=== PATIENT | female | born 2000 | race Caucasian/White ===

== ENCOUNTER 2024-11-09 13:56 | Outpatient (AMB) | payer OTHER, SELFPAY ==
--- NOTE | 2024-11-09 14:00 | A.OFFPC_ITS ---
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 She needs a physical exam today. Patient was diagnosed with ADHD at her Pediatrics office. She transferred from [place]. She has records on her phone, but she will sign a release so they can be faxed to us. Per mass pat she was treated with methylphenidate extended release 36 mg daily. She denies side effects on the medication. She has a longstanding history of anxiety and she says mild depression. Anxiety is significant. She uses hydroxyzine 25 mg at bedtime for sleep and anxiety. She is interested in seeing a therapist. She smokes marijuana. She only drinks alcohol occasionally. Agreeable to [facility] and contract for medication. 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 She is living with a roommate. Her monotype mechanic is Dr. Bray at [facility]. She goes every 6 months because she needs to have colposcopies. We discussed her family history which is significant for breast and ovarian cancer. Patient also states that her father had genetic testing that was positive she thinks for BRCA mutation. The patient would like to proceed with testing. Flu and Tdap up to date per patient. Records transfer pending. ROS: Constitutional: No unexplained weight loss, fever, chills, fatigue or night sweats. Eyes: No vision changes, blurry vision, double vision, eye pain, eye redness, eye discharge. ENT: No hearing loss, sneezing, congestion, runny nose or sore throat. Respiratory: No shortness of breath, cough or sputum production. Cardiovascular: No chest pain, chest pressure or chest discomfort. No palpitations or pedal edema. Gastrointestinal: No anorexia, nausea, vomiting or diarrhea. No abdominal pain or blood in stool. Genitourinary: No dysuria, hematuria, urinary frequency. Neurologic: No headache, dizziness, syncope, unilateral weakness, ataxia, numbness or tingling in the extremities. Musculoskeletal: No muscle pain, back pain, joint pain or swelling. Hematologic/Lymphatics: No bleeding or bruising. No painful lymph nodes. Skin: No rash or itching. Endocrine: No cold or heat intolerance. No polyuria or polydipsia. Psychiatric: See HPI and PHQ-9 assessment. No SI or HI Physical exam: Constitutional: Alert, in no distress. Head: Normocephalic. Eyes: Pupils are equal, round and reactive to light. Extraocular muscles intact. Ear, Nose and Throat: Canals clear. TMs normal. Normal nasal mucosa. No nasal discharge. No oral lesions. Neck: Supple, Full range of motion. No lymphadenopathy. No palpable thyroid masses. Respiratory: Clear to auscultation. Cardiovascular: S1 S2 regular. No murmurs. Gastrointestinal: Abdomen soft, non-tender, non-distended. Normal bowel sounds. No palpable masses. Neurologic: No focal neurological deficits. Symmetric patellar reflexes. Moves all extremities spontaneously. Sensation intact bilaterally. Skin: No rashes or lesions. Musculoskeletal: No gross deformities. Normal range of motion. Extremities: Warm and well perfused. No clubbing, cyanosis or edema. 3+ peripheral pulses bilaterally. Psychiatric: Normal mood and affect [facility] Medical History (Updated 11/09/24 @ 14:59 by ASHLY Carranza) Family history of breast abscess Family history of ovarian cancer Anxiety and depression ADHD Routine physical examination Screening for cardiovascular condition Family History Father Rectal cancer Paternal Grandmother Ovarian cancer Cervical cancer Paternal Aunt Breast cancer Paternal Aunt Breast cancer Other FH: mental illness Social History (Updated 11/09/24 @ 14:04 by Briseida Sutherland CMA) Housing: House Alcohol intake: current Patient Tobacco Use Status: Never used Tobacco e-Cigarette/Vaping Use: Never Used Second Hand Smoke Exposure: No Substance Use Type: Marijuana service: No Current occupational status: employed 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 1. Little interest or pleasure in doing things: several days 2. Feeling down, depressed, or hopeless: several days 3. Trouble falling or staying asleep, or sleeping too much: nearly every day 4. Feeling tired or having little energy: more than half the days 5. Poor appetite or overeating: more than half the days 6. Feeling bad about yourself - or that you are a failure or have let yourself or your family down: several days 7. Trouble concentrating on things, such as reading the newspaper or watching television: nearly every day 8. Moving or speaking so slowly that other people could have noticed. Or the opposite - being so fidgety or restless that you have been moving around a lot more than usual: nearly every day 9. Thoughts that you would be better off or of hurting yourself in some way: not at all Total score: 16 Source: Developed by Drs. Stewart Sauceda, Tere Oden, Boubacar Nielson and colleagues, with an educational yordan from [employer]. Thrive Questionnaire Date Thrive assessed: 11/06/24 I am a: Patient What is your living situation today?: I have a steady place to live Within the past 12 months, did the food you bought not last and you didn't have the money to get more?: Never true Within the past 12 months, did you worry whether your food would run out before you got money to buy more?: Never true Do you have trouble paying for medicines?: No Do you have trouble getting transportation to medical appointments?: No Do you have trouble paying your heating and electricity bill?: No Do you have trouble taking care of your child, family member or friend?: No Do you have trouble with day-to-day activities such as bathing, preparing meals, shopping, managing finances, etc.?: No Are you currently unemployed and looking for a job?: No Are you interested in more education?: No Please select the resources that you would like help with: None Currently or been in a relationship where the following occur: No concerns reported THRIVE Score: 0 AUDIT C Alcohol Use Questionnaire (AUDIT-C) 1. How often do you have a drink containing alcohol?: Monthly or less 2. How many drinks containing alcohol do you have on a typical day when you are drinking?: 1 or 2 3. How often do you have six or more drinks on one occasion?: Never Total Score: 1 MANNIE-7 AMB Questionnaire MANNIE-7 Feeling nervous, anxious, or on edge: 3 = Nearly every day Not being able to stop or control worryin = Nearly every day Worrying too much about different things: 3 = Nearly every day Trouble relaxin = Nearly every day Being so restless that it is hard to sit still: 3 = Nearly every day Becoming easily annoyed or irritable: 2 = More than half the days Feeling afraid as if something awful might happen: 1 = Several days Total MANNIE-7 score (0-4 normal; 5-9 mild; 10-14 moderate; 15-21 severe): 18 Source: Developed by Drs. Stewart Sauceda, Tere Oden, Boubacar Nielson and colleagues, with an educational yordan from [employer]. Physical exam (Primary Care) Vital Signs: Last Vital Signs Pulse 94 11/09/24 14:13 BP 124/68 11/09/24 14:13 Oxygen Delivery Method Room Air 11/09/24 14:13 BMI result Body Mass Index 28.6 Tobacco/Smoking Status: Tobacco use Status Tobacco use date assessed 11/09/24 11/09/24 14:10 Patient Tobacco Use Status Never used Tobacco 11/09/24 14:10 e-Cigarette/Vaping Use Never Used 11/09/24 14:10 PHQ-9: PHQ-9 Score PHQ-9: Total score 16 11/09/24 14:10 Thrive Assessment: Date of Thrive Assessment Date Thrive assessed 11/06/24 11/09/24 14:10 Currently or been in a relationship where the following occur: No concerns reported Coding Level of Care Code New Pt Prev Care 18-39yr([id number] Diagnoses Routine physical examination Z00.00 Screening for cardiovascular condition Z13.6 Family history of ovarian cancer Z80.41 Anxiety and depression F41.9; F32.A ADHD F90.9 Assessment & Plan Assessment & Plan (1) Routine physical examination: Code(s): Z00.00 - Encounter for general adult medical examination without abnormal findings Category: Medical Plan: Patient is seen today for a routine physical. As part of this visit we reviewed the following issues, which are considered and essential part of preventative health in this age group: - Breast Cancer screening - Annual Environmental Maintenance Worker exam - Blood pressure screening - Cholesterol screening - Osteoporosis prevention including calcium/vitamin D intake, weight bearing exercise & smoking cessation - Nutritional and exercise counseling - Counseling of injury prevention including fire prevention, smoke alarms and seat belt usage - Screening for depression - Prevention of and/or testing for infectious diseases - Education about skin cancer - Recommendations about immunizations - Recommendation of an eye exam - Screening for substance abuse - Genetic cancer risk screening (2) Screening for cardiovascular condition: Code(s): Z13.6 - Encounter for screening for cardiovascular disorders Category: Medical (3) Family history of ovarian cancer: Code(s): Z80.41 - Family history of malignant neoplasm of ovary Category: Medical Plan: Refer to genetic counseling to discuss testing. (4) Anxiety and depression: Code(s): F41.9 - Anxiety disorder, unspecified; F32.A - Depression, unspecified Category: Medical Plan: Continue hydroxyzine 25 mg nightly. Referred to Psychology for counseling. (5) ADHD: Code(s): F90.9 - Attention-deficit hyperactivity disorder, unspecified type Category: Medical Plan: Mass pat reviewed. CSC sign. She will have UDS done when she completes labs. Refilled medication. Plan Follow up in 6 months for med review. Orders: Orders Comprehensive Met. Panel Today F90.9 - Attention-deficit hyperactivity disorder, unspecified type, Z00.00 - Encounter for general adult medical examination without abnormal findings, Z13.6 - Encounter for screening for cardiovascular disorders Lipid Panel Today E78.5 - Hyperlipidemia, unspecified, F90.9 - Attention- deficit hyperactivity disorder, unspecified type, Z00.00 - Encounter for general adult medical examination without abnormal findings, Z13.6 - Encounter for screening for cardiovascular disorders Drug Screen Urine Today F90.9 - Attention-deficit hyperactivity disorder, unspecified type, Z00.00 - Encounter for general adult medical examination without abnormal findings, Z13.6 - Encounter for screening for cardiovascular disorders Complete Blood Count no Diff Today F90.9 - Attention-deficit hyperactivity disorder, unspecified type, Z00.00 - Encounter for general adult medical examination without abnormal findings, Z13.6 - Encounter for screening for cardiovascular disorders TSH reflex Free T4 Today F90.9 - Attention-deficit hyperactivity disorder, unspecified type, Z00.00 - Encounter for general adult medical examination without abnormal findings, Z13.6 - Encounter for screening for cardiovascular disorders Referrals Psychology Referral F32.A - Depression, unspecified, F41.9 - Anxiety disorder, unspecified, F90.9 - Attention-deficit hyperactivity disorder, unspecified type Genetics Referral Z80.41 - Family history of malignant neoplasm of ovary, Z84.2 - Family history of other diseases of the genitourinary system Medications: New methylphenidate HCl ER 36 mg PO DAILY 30 tabs 0RF hydroxyzine HCl 25 mg PO BEDTIME 90 tabs 3RF
[2024-11-09 14:13] VITALS: BP 124/68; PULSE 94; BMI 28.6
== END 2024-11-09 14:55 | disposition home or self-care (01) ==
PROVIDERS: PCP Physician Assistant Medical; Visit Provider Physician Assistant Medical
DX: Z00.00 Encounter for general adult medical examination without abnormal findings (principal); Z13.6 Encounter for screening for cardiovascular disorders; Z80.41 Family history of malignant neoplasm of ovary; F41.9 Anxiety disorder, unspecified; F32.A Depression, unspecified; F90.9 Attention-deficit hyperactivity disorder, unspecified type

== ENCOUNTER 2025-05-08 09:02 | Outpatient (REF) | payer OTHER, SELFPAY ==
[2025-05-08 11:33] LABS: Hematocrit 38.5 % (37.0-47.0); Hemoglobin 12.7 g/dl (12.0-16.0); Mean Corpuscular Hemoglobin 29.1 pg (27.0-33.0); Mean Corpuscular Volume 88.3 fL (80.0-98.0); Mean Platelet Volume 9.3 fL (9.4-12.3); Platelet Count 209 X10*3/uL (160-400); Red Blood Count 4.36 X10*6/uL (4.20-5.50); Red Cell Distribution Width 12.9 % (11.0-16.0); White Blood Count 3.7 X10*3/uL (4.8-10.8)
[2025-05-08 12:07] LABS: Alanine Aminotransferase 13 U/L (0-31); Alkaline Phosphatase 57 U/L (39-117); Anion Gap 9 (12-20); Aspartate Amino Transferase 22 U/L (5-31); Bilirubin Total 0.6 mg/dL (0.0-1.0); Blood Urea Nitrogen 9 mg/dL (9-16); Calcium 8.8 mg/dL (8.4-10.2); Carbon Dioxide 24 mmol/L (22-29); Chloride 110 mmol/L (96-108); Cholesterol 163 mg/dL (<200); Estimated Glomerular Filt Rate > 60; Glucose Random 88 mg/dL (60-115); HDL Cholesterol 71 mg/dL (>40); LDL Cholesterol Calculated 81 mg/dL (<100); Potassium 4.1 mmol/L (3.3-5.1); Sodium 139 mmol/L (135-145); Total Protein 6.4 g/dL (6.5-8.0); Triglycerides 56 mg/dL (<150)
[2025-05-08 12:08] LABS: TSH reflex Free T4 0.75 uIU/mL (0.32-4.0)
[2025-05-08 14:27] LABS: Amphetamine Screen Urine Not Detected (Not Detect); Barbiturates, Urine Not Detected (Not Detect); Benzodiazepines Screen Urine Not Detected (Not Detect); Buprenorphine Scr Not Detected (Not Detect); Cannabinoid Screen Urine POSITIVE (Not Detect); Cocaine Screen Urine Not Detected (Not Detect); Fentanyl, urine Not Detected (Not Detect); Methadone Screen, Urine Not Detected (Not Detect); Opiate Screen Urine Not Detected (Not Detect); Oxycodone Screen Urine Not Detected (Not Detect); Phencyclidine Screen Urine Not Detected (Not Detect)
== END 2025-05-08 09:03 | disposition home or self-care (01) ==
LOC: HO.WFDLDS 09:02
PROVIDERS: Visit Provider Physician Assistant Medical
DX: E78.5 Hyperlipidemia, unspecified (principal); Z13.6 Encounter for screening for cardiovascular disorders; Z00.00 Encounter for general adult medical examination without abnormal findings; F90.9 Attention-deficit hyperactivity disorder, unspecified type
CPT/HCPCS: 80053; 80061; 80307; 84443; 85027

== ENCOUNTER 2025-05-10 14:49 | Outpatient (AMB) | payer OTHER, SELFPAY ==
--- NOTE | 2025-05-10 14:53 | A.OFFPC_ITS ---
Vital Signs 05/10/25 14:56 Height 5 ft 2.32 in Weight 158 lb 2 oz BMI 28.6 BP 102/64 Blood Pressure Location Lt brachial Position Sitting Pulse 89 Pulse Source Pulse Oximeter Temp 98.4 F Temp Source Temporal Artery Scan Pulse Oximetry (%) 99 Oxygen Delivery Method Room Air Intake Visit Reasons: med review Intake Note: Ewa muñozkirstin in the office today for a medication check in. Allergies No Known Allergies Allergy (Verified 05/10/25 14:56) Tobacco use date assessed: 05/10/25 Dental Screening Dental Screen Date: 05/10/25 Did you have a dental visit in the last 12 months?: Yes Did you have a dental problem in the last 6 months where you did not have access to dental care?: No Was dental information given to patient?: Patient has dentist HPI HPI Comments History of Present Illness Details This is a 24-year-old female with a past medical history of depression, anxiety and ADHD presenting for a med follow up, but she has additional concerns. ADHD-she was diagnosed in Pediatrics. She was taking Concerta 36 mg daily. She self discontinued it a month or so ago because she was having palpitations after taking it. She also reports having an eye twitch for a week. She does not know if it was related, but she became very anxious about it and started googling information about this. She read that if she develops vision changes it could be very serious and then she subsequently did get blurry vision in that eye and had a ?full-blown panic attack. She has had panic attacks before so she spoke to her father who calmed her down. Anxiety is not well-controlled per patient. Citalopram was ineffective and caused headaches in the past. Sertraline helped, but she does not like taking daily medication. She uses hydroxyzine at night as needed which is helpful. She also has a history of depression. I referred her for counseling, but she did not follow through with it. She is open to it. Smokes marijuana. 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 She had 6 or 7 glasses wine this past Wednesday, and the next day she developed nausea, belching and an acid feeling in her stomach. This icontinued so she has been following a very bland diet. It is better today but she is still having symptoms and not eating much besides bananas and yogurt. No vomiting, blood in stools, fevers, chills. She is also anxious because she uses tanning beds and she noticed a skin lesion on her left lower back in February. She research this, and she does not think it looks like skin cancer, but she is not sure what to make of it. She says it is not itchy or painful. She has been using [id number] moisturizer on it. ROS: Constitutional: No unexplained weight loss, fever, chills or night sweats Eyes: No vision changes, loss of vision, double vision, eye pain or redness Respiratory: No shortness of breath, cough or sputum production. Cardiovascular: No chest pain, chest pressure or chest discomfort. Palpitations resolved off Concerta. No pedal edema Gastrointestinal: See HPI Neurologic: No headache, dizziness, syncope, seizures or tremors Skin: See HPI Psychiatric: See HPI Physical exam: Constitutional: Alert, in no distress. Eyes: Pupils are equal, round and reactive to light. Extraocular muscles intact. Neck: Supple, Full range of motion. No lymphadenopathy. No palpable thyroid masses. Respiratory: Clear to auscultation. Cardiovascular: S1 S2 regular. No murmurs. Gastrointestinal: Abdomen soft, non-tender, non-distended. Normal bowel sounds. No palpable masses. Neurologic: No focal neurological deficits. Symmetric patellar reflexes. Moves all extremities spontaneously. Sensation intact bilaterally. Skin: 4.5 x 2.2 mm mildly erythematous, annular lesion with central clearing on the left lower back with a little bit of scaling around the borders Psychiatric: Anxious affect [facility] Medical History (Updated 05/10/25 @ 16:13 by ASHLY Carranza) Gastritis Skin lesion Family history of breast abscess Family history of ovarian cancer Anxiety and depression ADHD Routine physical examination Screening for cardiovascular condition Family History Father Rectal cancer Paternal Grandmother Ovarian cancer Cervical cancer Paternal Aunt Breast cancer Paternal Aunt Breast cancer Other FH: mental illness Social History (Updated 05/10/25 @ 14:54 by Savi Patel MA) Housing: House Alcohol intake: current Patient Tobacco Use Status: Never used Tobacco e-Cigarette/Vaping Use: Never Used Second Hand Smoke Exposure: No Substance Use Type: Marijuana service: No Current occupational status: employed 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 1. Little interest or pleasure in doing things: several days 2. Feeling down, depressed, or hopeless: several days 3. Trouble falling or staying asleep, or sleeping too much: more than half the days 4. Feeling tired or having little energy: nearly every day 5. Poor appetite or overeating: more than half the days 6. Feeling bad about yourself - or that you are a failure or have let yourself or your family down: not at all 7. Trouble concentrating on things, such as reading the newspaper or watching television: more than half the days 8. Moving or speaking so slowly that other people could have noticed. Or the opposite - being so fidgety or restless that you have been moving around a lot more than usual: several days 9. Thoughts that you would be better off or of hurting yourself in some way: not at all Total score: 12 Depression Screening Interpretation: Positive Depression Screening Follow-up: Other (Referred for therapy) Depression Screening Done: Yes 33620 - PHQ-9 Billing: Yes Source: Developed by Drs. Stewart Sauceda, Tere Oden, Boubacar Nielson and colleagues, with an educational yordan from [employer]. Thrive Questionnaire Date Thrive assessed: 05/10/25 I am a: Patient What is your living situation today?: I have a steady place to live Within the past 12 months, did the food you bought not last and you didn't have the money to get more?: Never true Within the past 12 months, did you worry whether your food would run out before you got money to buy more?: Never true Do you have trouble paying for medicines?: No Do you have trouble getting transportation to medical appointments?: No Do you have trouble paying your heating and electricity bill?: No Do you have trouble taking care of your child, family member or friend?: No Do you have trouble with day-to-day activities such as bathing, preparing meals, shopping, managing finances, etc.?: No Are you currently unemployed and looking for a job?: No Are you interested in more education?: I choose not to answer this question Please select the resources that you would like help with: None Currently or been in a relationship where the following occur: I choose not to answer THRIVE Score: 0 AUDIT C Alcohol Use Questionnaire (AUDIT-C) 1. How often do you have a drink containing alcohol?: Monthly or less 2. How many drinks containing alcohol do you have on a typical day when you are drinking?: 3 or 4 3. How often do you have six or more drinks on one occasion?: Less than monthly Total Score: 3 Score Reviewed/Action Taken: No MANNIE-7 AMB Questionnaire MANNIE-7 Date MANNIE - 7 assessed: 05/10/25 Feeling nervous, anxious, or on edge: 3 = Nearly every day Not being able to stop or control worryin = Nearly every day Worrying too much about different things: 3 = Nearly every day Trouble relaxin = Nearly every day Being so restless that it is hard to sit still: 2 = More than half the days Becoming easily annoyed or irritable: 2 = More than half the days Feeling afraid as if something awful might happen: 1 = Several days Total MANNIE-7 score (0-4 normal; 5-9 mild; 10-14 moderate; 15-21 severe): 17 Source: Developed by Drs. Stewart Sauceda, Tere Oden, Boubacar Nielson and colleagues, with an educational yordan from [employer]. MANNIE-7 Assessment Billing MANNIE-7 Assessment Tool: MANNIE-7 Assessment 89561 Physical exam (Primary Care) Vital Signs: Last Vital Signs Temp 98.4 F 05/10/25 14:56 Pulse 89 05/10/25 14:56 BP 102/64 05/10/25 14:56 Pulse Ox 99 05/10/25 14:56 Oxygen Delivery Method Room Air 05/10/25 14:56 BMI result Body Mass Index 28.6 Tobacco/Smoking Status: Tobacco use Status Tobacco use date assessed 05/10/25 05/10/25 14:55 Patient Tobacco Use Status Never used Tobacco 05/10/25 14:55 e-Cigarette/Vaping Use Never Used 05/10/25 14:55 PHQ-9: PHQ-9 Score PHQ-9: Total score 12 05/10/25 14:55 Depression Screening Interpretation: Positive Depression Screening Follow-up: Other (Referred for therapy) Thrive Assessment: Date of Thrive Assessment Date Thrive assessed 05/10/25 05/10/25 14:55 Currently or been in a relationship where the following occur: I choose not to answer Coding Level of Care Code Est Pt Level 4 (65022) Complex EM visit Add On G2211 Diagnoses Anxiety and depression F41.9; F32.A Skin lesion L98.9 Gastritis K29.70 Additional Codes MANNIE-7 Assessment Billing - MANNIE-7 Assessment Tool: MANNIE-7 Assessment 23517 ([id number]) PHQ-9 - 33754 - PHQ-9 Billing: Yes ([id number]) Assessment & Plan Assessment & Plan (1) Anxiety and depression: Code(s): F41.9 - Anxiety disorder, unspecified; F32.A - Depression, unspecified Category: Medical Plan: Symptoms are not well-controlled. Patient is not sure she wants to try additional medications. She is open to therapy. I referred her again. Continue hydroxyzine as needed for anxiety. Advised not to drive or operate heavy machinery since it causes sedation. Patient will consider referral to Psychiatry. (2) Skin lesion: Code(s): L98.9 - Disorder of the skin and subcutaneous tissue, unspecified Category: Medical Plan: Differential includes tinea corporis, granuloma annulare, nummular eczema could look similar, but it is not pruritic. Trial of topical ketoconazole twice daily for 2-4 weeks. Refer to dermatology. (3) Gastritis: Code(s): K29.70 - Gastritis, unspecified, without bleeding Category: Medical Plan: Avoid spicy and acidic foods and alcohol. Avoid NSAIDs. Omeprazole 20 mg every morning for 2 weeks. If symptoms do not resolve contact the office. Warning signs warranting ER evaluation reviewed. Strongly advised patient to avoid binge drinking due to adverse effects physically and mentally. Plan Follow up in 8 weeks. Orders: Referrals Psychology Referral F32.A - Depression, unspecified, F41.9 - Anxiety disorder, unspecified, F90.9 - Attention-deficit hyperactivity disorder, unspecified type Dermatology Referral L98.9 - Disorder of the skin and subcutaneous tissue, unspecified Medications: New omeprazole 20 mg PO DAILY 14 caps 0RF ketoconazole 2% 1 appl topical BID 4 weeks 30 grams 0RF Discontinued methylphenidate HCl ER Discontinued Reason: Doctor's Order 36 mg PO DAILY 30 tabs 0RF
[2025-05-10 14:56] VITALS: BP 102/64; PULSE 89; TEMP 36.9; O2SAT 99; BMI 28.6
--- OUTSIDE RECORDS SUMMARY | 2025-05-10 17:26 | XMS_ITS | Encounter Summary ---
Author Organization [facility] Address [address] [place] [address] Phone Care Team Providers Care Complaint Clerk Name Role Phone Mariyatrisha Kandace CAMMY Primary Care Provider [phone] Reason for Visit * Reason Comments Med Refill Encounter Details Date Type Department Care Team ([facility] Contact Info) Description 03/05/2022 Refill [facility] [address] [place] [address] Demetria Strickland MD [address] [place] [address] Anxiety with depression Social History Tobacco Use Types Packs/Day Years Used Date Smoking Tobacco: Never Smokeless Tobacco: Never Hunger/Food Answer Date Recorded In the last 12 months, did y ou or your family ever eat less than you felt you should because there wasn't enough money for food? No 12/23/2021 Stable Housing Answer Date Recorded Are you worried that in the next 2 months you may not have stable housing? No 12/23/2021 Transportation Concerns Answer Date Rec orded In the last 12 months, have you or your family ever had to go without healthcare because you didn't have a way to get there? No 12/23/2021 Hazards in Home Answer Date Recorded Think about the place you li ve. Do you have problems with any of the following? Pests (mice or roaches), mold, no/not working smoke detectors, water leaks, no window guards. No 2021 Financing Utilities Answer Date Recorde d In the last 12 months, has t he electric, gas, oil, or water company threatened to shut off your services in your home? No 12/23/2021 Safety at Home Answer Date Recorded Are you or your family worried about feeling saf e in your home? No 12/23/2021 Outside Support Answer Date Recorded Do you feel that you need mo re support from other people or programs to help you care for yourself or your family? No 12/23/2021 Understanding Health Concerns Answer Da te Recorded Do you need help understandi ng your or your child's healthcare needs (diagnosis, medications, plan, etc.)? No 12/23/2021 Financing Health Concerns Answer Date R ecorded In the last 12 months, was t here a time when your child needed to see a doctor or get medications or supplies but could not because of cost? No 12/23/2021 Missing School or Work Answer Date Darci rded Did you or your child miss s chool or work because of a health problem that could have been avoided? No 12/23/2021 Comments No Sex and Gender Information Value Date Recorded Sex Assigned at Not on file Legal Sex Female 6:34 PM EDT Gender Identity Female 01/07/2021 10:04 AM EST Sexual Orientation Not on file documented as of this encounter Plan of Treatment Not on file documented as of this encounter Visit Diagnoses Diagnosis Anxiety with depression documented in this encounter Care Teams Complaint Clerk Relationship Specialty Start Date End Date Kandace Barrera NP [facility] [place] [address] PCP - General Pediatrics 05/18/23 documented as of this encounter
== END 2025-05-10 15:33 | disposition home or self-care (01) ==
LOC: HO.HMCFM 14:50
PROVIDERS: PCP Physician Assistant Medical; Visit Provider Physician Assistant Medical
DX: F41.9 Anxiety disorder, unspecified (principal); F32.A Depression, unspecified; L98.9 Disorder of the skin and subcutaneous tissue, unspecified; K29.70 Gastritis, unspecified, without bleeding

== ENCOUNTER → 2025-05-10 14:49 | Outpatient (BNVA) | payer OTHER, SELFPAY | PROVIDERS: PCP Physician Assistant Medical; Visit Provider Physician Assistant Medical | DX: F41.9 Anxiety disorder, unspecified (principal); F32.A Depression, unspecified; L98.9 Disorder of the skin and subcutaneous tissue, unspecified; K29.70 Gastritis, unspecified, without bleeding; Z79.899 Other long term (current) drug therapy; Z13.31 Encounter for screening for depression; Z13.30 Encounter for screening examination for mental health and behavioral disorders, unspecified | CPT/HCPCS: 96127 ==

== ENCOUNTER 2025-06-06 10:51 | Outpatient (REF) | payer OTHER, SELFPAY ==
--- OUTSIDE RECORDS SUMMARY | 2025-06-06 11:57 | XMS_ITS | Encounter Summary ---
Author Organization [facility] Address [address] [place] [address] Phone Care Team Providers Care Assembler Truck Trailer Name Role Phone Mariyatrisha Kandace CAMMY Primary Care Provider [phone] Reason for Visit * Reason Comments Med Refill Encounter Details Date Type Department Care Team ([facility] Contact Info) Description 03/05/2022 Refill [facility] [address] [place] [address] Demetria Strickland MD [address] [place] [address] Anxiety with depression Social History Tobacco Use [...] depression documented in this encounter Care Teams Assembler Truck Trailer Relationship Specialty Start Date End Date Kandace Barrera NP [facility] [place] [address] PCP - General Pediatrics 05/18/23 documented as of this encounter
[2025-06-06 14:38] LABS: MANUAL DIFF FLAG NO
[2025-06-06 14:40] LABS: Hematocrit 39.5 % (37.0-47.0); Hemoglobin 13.6 g/dl (12.0-16.0); Imm Gran Abs Auto 0.01 X10*3/uL (0.00-0.03); Imm Gran Pct Auto 0.2 % (0.0-0.4); Lymphocytes Absolute Auto 1.6 X10*3/uL (1.2-4.9); Mean Corpuscular HGB Conc 34.4 g/dl (31.0-35.0); Mean Corpuscular Hemoglobin 28.9 pg (27.0-33.0); Mean Corpuscular Volume 84.0 fL (80.0-98.0); NRBC Abs Auto 0.000 X10*3/uL (0.0-0.012); NRBC Pct Auto 0.0 /100WBC (0.0-0.2); Platelet Count 172 X10*3/uL (160-400); Red Blood Count 4.70 X10*6/uL (4.20-5.50); White Blood Count 4.6 X10*3/uL (4.8-10.8)
[2025-06-06 15:01] LABS: Alanine Aminotransferase 13 U/L (0-31); Albumin Level 4.4 g/dL (3.5-5.0); Alkaline Phosphatase 66 U/L (39-117); Amylase 40 U/L (28-100); Anion Gap 10 (12-20); Aspartate Amino Transferase 17 U/L (5-31); Blood Urea Nitrogen 9 mg/dL (9-16); Calcium 9.2 mg/dL (8.4-10.2); Carbon Dioxide 27 mmol/L (22-29); Chloride 107 mmol/L (96-108); Estimated Glomerular Filt Rate > 60; Lipase 28 U/L (8-78); Potassium 3.7 mmol/L (3.3-5.1); Sodium 140 mmol/L (135-145); Total Protein 6.6 g/dL (6.5-8.0)
== END 2025-06-06 10:52 | disposition home or self-care (01) ==
LOC: HO.WFDLDS 10:51
PROVIDERS: Visit Provider Physician Assistant Medical
DX: R10.9 Unspecified abdominal pain (principal); R63.4 Abnormal weight loss
CPT/HCPCS: 36415; 80053; 82150; 83690; 84702; 85025

== ENCOUNTER 2025-06-07 08:48 | Outpatient (REF) | payer OTHER, SELFPAY ==
--- NOTE | ~2025-06-07 | US_ITS ---
EXAMINATION: US ABDOMEN HISTORY: R63.4 - Abnormal weight loss TECHNIQUE: Real-time grayscale ultrasound imaging of the abdomen was performed and images were reviewed. COMPARISON: There are no prior studies available for comparison. FINDINGS: Liver: The right lobe of the liver measures 14.7 cm in size. The left lobe of the liver measures 8.7 cm in size. The liver demonstrates normal homogeneous echotexture. There is a 2.1 x 1.8 x 1.5 cm isoechoic mass in the right lobe and a 1.6 x 1.3 x 1.5 cm hypoechoic mass in the left lobe. No intrahepatic biliary ductal dilatation is identified. There is normal hepatopedal flow in the portal vein. Gallbladder and biliary tree: The gallbladder is unremarkable, without evidence of calculi, wall thickening, or pericholecystic fluid. There is no sonographic Us sign. The common bile duct is normal in caliber measuring 2 mm. Kidneys: The right kidney measures 9.5 cm in length. The left kidney measures 9.5 cm in length. The kidneys are unremarkable, without evidence of masses, hydronephrosis, or calculi. Pancreas: The pancreatic head, neck, and body are unremarkable. The pancreatic tail is obscured by bowel gas. Spleen: The spleen is normal in size and contour, measuring 10.7 cm in length. Abdominal aorta and inferior vena cava: The visualized portions of the abdominal aorta and inferior vena cava are normal in caliber. There is no free fluid in the abdomen. US/US abdomen complete IMPRESSION: There are masses in the right lobe of the liver measuring 2.1 x 1.8 x 1.5 cm and in the left lobe measuring 1.6 x 1.3 x 1.5 cm. Further evaluation with MRI without and with contrast is recommended. Findings were sent to ASHLY Anderson by secure text message on 06/07/2025 at 10:13 AM. Electronically signed by: Stewart May MD 06/07/2025 10:14 AM EDT
--- OUTSIDE RECORDS SUMMARY | 2025-06-07 09:02 | XMS_ITS | Encounter Summary ---
Author Organization [facility] Address [address] [place] [address] Phone Care Team Providers Care Exceptional Student Education Aide Name Role Phone Mariyatrisha Kandace CAMMY Primary Care Provider [phone] Reason for Visit * Reason Comments Med Refill Encounter Details Date Type Department Care Team ([facility] Contact Info) Description 03/05/2022 Refill [facility] [address] [address] Demetria Strickland MD [address] [place] [address] Anxiety with depression Social History Tobacco Use [...] depression documented in this encounter Care Teams Exceptional Student Education Aide Relationship Specialty Start Date End Date Kandace Barrera NP [facility] [address] PCP - General Pediatrics 05/18/23 documented as of this encounter
== END 2025-06-07 08:49 | disposition home or self-care (01) ==
LOC: HO.US 08:48
PROVIDERS: PCP Physician Assistant Medical; Visit Provider Physician Assistant Medical
DX: R10.9 Unspecified abdominal pain (principal); R63.4 Abnormal weight loss
CPT/HCPCS: 76700

== ENCOUNTER → 2025-06-07 08:51 | Outpatient (BNV) | payer OTHER, SELFPAY | PROVIDERS: PCP Physician Assistant Medical; Visit Provider Radiology Diagnostic Radiology | DX: R63.4 Abnormal weight loss (principal) | CPT/HCPCS: 76700 ==

== ENCOUNTER 2025-07-12 15:31 | Outpatient (AMB) | payer OTHER, SELFPAY ==
--- NOTE | 2025-07-12 15:53 | MHC.PC.OV ---
Vital Signs 07/12/25 15:57 Height 5 ft 2.32 in Weight 153 lb BMI 27.7 BP 110/60 Blood Pressure Location Lt brachial Position Sitting Pulse 66 Pulse Source Pulse Oximeter Temp 97.7 F Temp Source Temporal Artery Scan Pulse Oximetry (%) 100 Oxygen Delivery Method Room Air Intake Visit Reasons: follow up anxiety/adhd Intake Note: Ewa presents in the office today for a follow up to her anxiety and ADHD. Allergies No Known Allergies Allergy (Verified 07/12/25 15:55) Medication List - Last Reconciled 07/12/25 by ASHLY Carranza desvenlafaxine succinate ER 25 mg PO DAILY hydroxyzine HCl 25 mg PO BEDTIME ketoconazole 2% 1 appl topical BID 4 weeks levonorgestrel-ethinyl estrad 0.1-20 mg-mcg (Vienva) 1 tab PO DAILY Tobacco use date assessed: 07/12/25 Dental Screening Dental Screen Date: 07/12/25 Did you have a dental visit in the last 12 months?: Yes Did you have a dental problem in the last 6 months where you did not have access to dental care?: No Was dental information given to patient?: Patient has dentist HPI HPI Comments History of Present Illness Details This is a 24-year-old female with a past medical history of depression, anxiety and ADHD presenting for follow up. ADHD, anxiety and depression-seeing a therapist and psychiatrist in [place]. She notes improvement on desvenlafaxine. She has a follow up next week with the psychiastrist. She takes Hydroxyzine as needed at night. Her GI symptoms are better. She is eating a normal diet again. Reports she is back to her baseline weight. She stopped PPI. She needs to have repeat labs and h. pylori testing completed. She was contacted to schedule MRI for characterization of liver masses seen on u/s, but she did not schedule it yet. Mother has hepatits. No other known family history of GI pathology. ROS: Constitutional: No unexplained weight loss, fever, chills or night sweats Eyes: No vision changes, loss of vision, double vision, eye pain or redness Respiratory: No shortness of breath, cough or sputum production. Cardiovascular: No chest pain, chest pressure or chest discomfort. Gastrointestinal: No dysphagia, vomiting, nausea, abdominal, diarrhea, constipation, blood in stools Psychiatric: See HPI Physical exam: Constitutional: Alert, in no distress. Eyes: Pupils are equal, round and reactive to light. Extraocular muscles intact. Neck: Supple, Full range of motion. No lymphadenopathy. No palpable thyroid masses. Respiratory: Clear to auscultation. Cardiovascular: S1 S2 regular. No murmurs. Gastrointestinal: Abdomen soft, non-tender, non-distended. Normal bowel sounds. No palpable masses. Psychiatric: Normal affect [facility] Medical History (Updated 06/07/25 @ 17:13 by ASHLY Carranza) Liver masses Abdominal pain Weight loss Decreased leukocytes Gastritis Skin lesion Family history of breast abscess Family history of ovarian cancer Anxiety and depression ADHD Routine physical examination Screening for cardiovascular condition Family History (Updated 07/12/25 @ 15:57 by Savi Patel MA) Father Rectal cancer Paternal Grandmother Ovarian cancer Cervical cancer Paternal Aunt Breast cancer Paternal Aunt Breast cancer Other FH: mental illness Social History (Updated 07/12/25 @ 15:57 by Savi Patel MA) Housing: House Alcohol intake: current Patient Tobacco Use Status: Never used Tobacco e-Cigarette/Vaping Use: Never Used Second Hand Smoke Exposure: No Substance Use Type: Marijuana service: No Current occupational status: employed 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, 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 Current occupational exposures/hazards: No Cognitive needs: No Hearing needs: No Vision needs: Yes (glasses) Questionnaire Thrive Questionnaire Date Thrive assessed: 05/10/25 I am a: Patient What is your living situation today?: I have a steady place to live Within the past 12 months, did the food you bought not last and you didn't have the money to get more?: Never true Within the past 12 months, did you worry whether your food would run out before you got money to buy more?: Never true Do you have trouble paying for medicines?: No Do you have trouble getting transportation to medical appointments?: No Do you have trouble paying your heating and electricity bill?: No Do you have trouble taking care of your child, family member or friend?: No Do you have trouble with day-to-day activities such as bathing, preparing meals, shopping, managing finances, etc.?: No Are you currently unemployed and looking for a job?: No Are you interested in more education?: I choose not to answer this question Please select the resources that you would like help with: None Currently or been in a relationship where the following occur: I choose not to answer THRIVE Score: 0 MANNIE-7 AMB Questionnaire MANNIE-7 Date MANNIE - 7 assessed: 05/10/25 Source: Developed by Drs. Stewart Sauceda, Tere Oden, Boubacar Nielson and colleagues, with an educational yordan from [employer] Physical exam (Primary Care) Vital Signs: Last Vital Signs Temp 97.7 F 07/12/25 15:57 Pulse 66 07/12/25 15:57 BP 110/60 07/12/25 15:57 Pulse Ox 100 07/12/25 15:57 Oxygen Delivery Method Room Air 07/12/25 15:57 BMI result Body Mass Index 27.7 Tobacco/Smoking Status: Tobacco use Status Tobacco use date assessed 07/12/25 07/12/25 16:00 Patient Tobacco Use Status Never used Tobacco 07/12/25 15:57 e-Cigarette/Vaping Use Never Used 07/12/25 15:57 Thrive Assessment: Date of Thrive Assessment Date Thrive assessed 05/10/25 07/12/25 15:55 Currently or been in a relationship where the following occur: I choose not to answer Coding Level of Care Code Est Pt Level 4 (96966) Complex EM visit Add On G2211 Diagnoses ADHD F90.9 Anxiety and depression F41.9; F32.A Liver masses R16.0 Abdominal pain R10.9 Assessment & Plan Assessment & Plan (1) ADHD: Code(s): F90.9 - Attention-deficit hyperactivity disorder, unspecified type Category: Medical (2) Anxiety and depression: Code(s): F41.9 - Anxiety disorder, unspecified; F32.A - Depression, unspecified Category: Medical (3) Liver masses: Code(s): R16.0 - Hepatomegaly, not elsewhere classified Category: Medical (4) Abdominal pain: Code(s): R10.9 - Unspecified abdominal pain Category: Medical Plan Continue avoidance of ETOH, spicy and acidic foods. Minimze NSAID use. She will have the test for H.pylori completed. She will respond to radiology to schedule the MRI for characterization of liver masses on u/s. She will follow up with her therapist and psychiatrist. Follow up in 8 weeks.
--- OUTSIDE RECORDS SUMMARY | 2025-07-12 15:53 | XMS_ITS | Encounter Summary ---
Author Organization [facility] Address [address] [place] [address] Phone Care Team Providers Care High School Foreign Language Tutor Name Role Phone Mariyatrisha Kandace CAMMY Primary Care Provider [phone] Reason for Visit * Reason Comments Med Refill Encounter Details Date Type Department Care Team ([facility] Contact Info) Description 03/05/2022 Refill [facility] [address] [facility] [address] [address] Demetria Strickland MD [address] [place] [address] Anxiety with depression Social History Tobacco Use [...] depression documented in this encounter Care Teams High School Foreign Language Tutor Relationship Specialty Start Date End Date Kandace Barrera NP [facility] [facility] [place] [place] [address] PCP - General Pediatrics 05/18/23 documented as of this encounter
[2025-07-12 15:57] VITALS: BP 110/60; PULSE 66; TEMP 36.5; O2SAT 100; BMI 27.7
== END 2025-07-12 16:23 | disposition home or self-care (01) ==
LOC: HO.HMCFM 15:32
PROVIDERS: PCP Physician Assistant Medical; Visit Provider Physician Assistant Medical
DX: F90.9 Attention-deficit hyperactivity disorder, unspecified type (principal); F41.9 Anxiety disorder, unspecified; F32.A Depression, unspecified; R16.0 Hepatomegaly, not elsewhere classified; R10.9 Unspecified abdominal pain

== ENCOUNTER 2025-07-31 11:02 | Outpatient (REF) | payer OTHER, SELFPAY ==
--- NOTE | ~2025-07-31 | MR_ITS ---
EXAMINATION: MR ABDOMEN WITHOUT AND WITH CONTRAST CLINICAL INFORMATION: Hepatomegaly. COMPARISON: Correlated to ultrasound dated June 07, 2025 reported liver size: 15 cm and 2.1 and 1.6 cm hepatic lesions. TECHNIQUE: MR abdomen was performed without and with use of 7.0 mL intravenous [(Gadavist) gadolinium contrast. Postcontrast images are performed in multiphase dynamic sequences. Imaging was performed in 3 planes. No reported immediate complications. FINDINGS: LIVER, GALLBLADDER, AND BILIARY TREE: Liver measures 17 cm. There is a 12 mm, slightly hyperintense T2, hypointense T1, restricted diffusion and subtle arterial phase enhancing lesion, right hepatic lobe segment Fletcher. There is a 13 mm, slightly hyperintense T2, hypointense T1, restricted diffusion and faint arterial phase enhancing lesion, right hepatic lobe, segment IVb. There is a 14 mm, slightly hyperintense T2, hypointense T1, restricted diffusion and faint enhancing lesion right, segment Fletcher/segment II main portal vein, hepatic veins and intrahepatic portion of the IVC are patent. No intrahepatic biliary ductal dilatation. Gallbladder is fluid-filled without pericholecystic fluid collection or gallbladder wall thickening. Common bile duct measures 3 mm.. PANCREAS: No focal mass. No peripancreatic fluid collection. No main pancreatic ductal dilatation. SPLEEN: 9 cm. No focal mass. ADRENAL GLANDS: No nodular lesions. KIDNEYS AND URETERS: Normal enhancement pattern. No renal mass. No hydronephrosis. GASTROINTESTINAL TRACT: Stable in the large intestine. No intestinal obstruction pattern. No ascites. ABDOMINAL WALL: No gross umbilical hernia. LYMPH NODES: No mesenteric or retroperitoneal lymphadenopathy. VASCULAR: No aneurysm or dissection, abdominal aorta. OSSEOUS STRUCTURES: No acute fracture or listhesis. MR/MR abdomen wo/w con IMPRESSION: 3 hepatic lesions without a clear definitive imaging diagnosis. Consider flash hemangiomata. Malignancy cannot be excluded. Recommend a 3 month follow-up for stability. Hepatomegaly, mild.. Electronically signed by: Lawson Valdez MD 07/31/2025 01:03 PM EDT
--- OUTSIDE RECORDS SUMMARY | 2025-07-31 12:39 | XMS_ITS | Encounter Summary ---
Author Organization [facility] Address [address] [place] [address] Phone Care Team Providers Care Gasoline Tester Name Role Phone Mariyatrisha Kandace CAMMY Primary Care Provider Reason for Visit * Reason Comments Med Refill Encounter Details Date Type Department Care Team ([facility] Contact Info) Description 01/04/2021 Refill [facility] [address] [place] [address] Demetria Strickland MD [address] [place] [address] Anxiety Social History Tobacco Use Types Packs/Day Years Used Date Smoking Tobacco: Never Smokeless Tobacco: Never Hunger/Food Answer Date Recorded In the last 12 months, did y ou or your family ever eat less than you felt you should because there wasn't enough money for food? No 12/02/2020 Stable Housing Answer Date Recorded Are you worried that in the next 2 months you may not have stable housing? No 12/02/2020 Transportation Concerns Answer Date Rec orded In the last 12 months, have you or your family ever had to go without healthcare because you didn't have a way to get there? No 12/02/2020 Hazards in Home Answer Date Recorded Think about the place you li ve. Do you have problems with any of the following? Pests (mice or roaches), mold, no/not working smoke detectors, water leaks, no window guards. No 2020 Financing Utilities Answer Date Recorde d In the last 12 months, has t he electric, gas, oil, or water company threatened to shut off your services in your home? No 12/02/2020 Safety at Home Answer Date Recorded Are you or your family worried about feeling saf e in your home? No 12/02/2020 Outside Support Answer Date Recorded Do you feel that you need mo re support from other people or programs to help you care for yourself or your family? No 12/02/2020 Understanding Health Concerns Answer Da te Recorded Do you need help understandi ng your or your child's healthcare needs (diagnosis, medications, plan, etc.)? No 12/02/2020 Financing Health Concerns Answer Date R ecorded In the last 12 months, was t here a time when your child needed to see a doctor or get medications or supplies but could not because of cost? No 12/02/2020 Missing School or Work Answer Date Darci rded Did you or your child miss s chool or work because of a health problem that could have been avoided? No 12/02/2020 Comments No Sex and Gender Information Value Date Recorded Sex Assigned at Not on file Legal Sex Female 6:34 PM EDT Gender Identity Female 01/07/2021 10:04 AM EST Sexual Orientation Not on file documented as of this encounter Plan of Treatment Not on file documented as of this encounter Visit Diagnoses Diagnosis Anxiety Anxiety state, unspecified documented in this encounter Care Teams Gasoline Tester Relationship Specialty Start Date End Date Kandace Barrera NP [facility] [place] [address] PCP - General Pediatrics 05/18/23 documented as of this encounter
--- OUTSIDE RECORDS SUMMARY | 2025-07-31 12:39 | XMS_ITS | Clinical Summary ---
Author Organization [facility] Address [address] [place] [phone] Phone Care Team Providers Care Web Marketing Specialist Name Role Phone Kandace Barrera AVIATION MAINTENANCE INSTRUCTOR Primary Care Provider [phone] Allergies No known active allergies Medications hydrOXYzine 25 MG tabletIndications: Anxiety Take 1 tablet (25 mg total) by mouth every 8 (eight) hours as needed for anxiety for up to 10 days. 20 tablet 3 2 Active levonorgestrel-eth inyl estradiol (Larissia) 0.1-20 MG-MCG per tabletIndications: Encounter for surveillance of contraceptive pills Take 1 tablet by mouth once daily. 84 tablet 4 3 Active sertraline 25 MG tabletIndications: Anxiety with depression Take 1 tablet (25 mg total) by mouth daily. 30 tablet 3 3 Active methylphenidate (Concerta) 36 MG CR tabletIndications: Attention deficit hyperactivity disorder (ADHD), combined type Take 1 tablet (36 mg total) by mouth every morning. 30 tablet 3 Active Active Problems Problem Noted Date Diagnosed Date Attention deficit hyperactiv ity disorder (ADHD), combined type 04/09/2022 Immunizations Immunization Administration Dates Next Due DTaP 5 05/12/2005, 1,2000,08/20,2000 H1N1 Inj Preservative Free 11/04/2009 HPV Vaccine 9 Valent 05/28/2020,01/23/2020,11/16 Hep A, ped/adol 01/15/2016,06/25/2015 Hep B, ped/adol 08/04/2001,2000,2000 Hib (PRP-T) 08/04/2001, 0,2000,06/21 IPV 05/12/2005, 1,2000,06/21 Influenza, injectable, quadrivalent 11/16/2019 Influenza, injectable, quadr ivalent, preservative free 09/22/2021,12/02/2020,11/25/2016 Influenza, injectable, trivalent 11/04/2009 Influenza, injectable, triva lent, preservative free 11/03/2012 Influenza, intranasal, trivalent 09/15/2014,08/01 MMR 05/12/2005,04/14/2001 Meningococcal Conj (Menactra) MCV4P 07/09/2016,0 08/28/2011 Pneumococcal Conjugate 08/04/2001,2000,2000,08/20 Tdap 12/23/2021,08/28/2011 Varicella 08/28/2011,04/14/2001 Family History Medical History Relation Name Comments No Known Problems Father Alexis No Known Problems Half-Sister Renetta No Known Problems Mother Glo No Known Problems Sister Kaitlin Relation Name Status Comments Father Alexis Alive Half-Sister Renetta Alive Mother Glo Alive Sister Kaitlin Alive Social History Tobacco Use Types Packs/Day Years Used Date Smoking Tobacco: Never Smokeless Tobacco: Never Hunger/Food Answer Date Recorded In the last 12 months, did y ou or your family ever eat less than you felt you should because there wasn't enough money for food? No 02/08/2023 Stable Housing Answer Date Recorded Are you worried that in the next 2 months you may not have stable housing? No 02/08/2023 Transportation Concerns Answer Date Rec orded In the last 12 months, have you or your family ever had to go without healthcare because you didn't have a way to get there? No 02/08/2023 Hazards in Home Answer Date Recorded Think about the place you li ve. Do you have problems with any of the following? Pests (mice or roaches), mold, no/not working smoke detectors, water leaks, no window guards. No 2022 Financing Utilities Answer Date Recorde d In the last 12 months, has t he electric, gas, oil, or water company threatened to shut off your services in your home? No 02/08/2023 Safety at Home Answer Date Recorded Are you or your family worried about feeling saf e in your home? No 02/08/2023 Outside Support Answer Date Recorded Do you feel that you need mo re support from other people or programs to help you care for yourself or your family? No 02/08/2023 Understanding Health Concerns Answer Da te Recorded Do you need help understandi ng your or your child's healthcare needs (diagnosis, medications, plan, etc.)? No 02/08/2023 Financing Health Concerns Answer Date R ecorded In the last 12 months, was t here a time when your child needed to see a doctor or get medications or supplies but could not because of cost? No 02/08/2023 Missing School or Work Answer Date Darci rded Did you or your child miss s chool or work because of a health problem that could have been avoided? No 02/08/2023 Comments No Sex and Gender Information Value Date Recorded Sex Assigned at Not on file Legal Sex Female 6:34 PM EDT Gender Identity Female 01/07/2021 10:04 AM EST Sexual Orientation Not on file Last Filed Vital Signs Vital Sign Reading Time Taken Comments Blood Pressure 104/78 02/08/2023 3:24 PM EDT Pulse 88 02/08/2023 3:24 PM EDT Temperature 36.2 C (97.1 F) 02/08/2023 3:24 PM EDT Respiratory Rate - - Oxygen Saturation - - Inhaled Oxygen Concentration - - Weight 66.8 kg (147 lb 3.2 oz) 03/22/2023 9:55 A M EDT Height 158.8 cm (5' 2.5 ) 02/08/2023 3:24 PM EDT Body Mass Index 26.49 02/08/2023 3:24 PM EDT Plan of Treatment Health Maintenance Due Date Last Done Comments Influenza Vaccines (#1) 2025 10/31/20 22, 09/22/2021, 12/02/2020, Additional history exists COVID-19 Vaccine ( season) 2025 11/24/2021, 04/16/2021, 03/19/2021 DTaP,Tdap,and Td Vaccines (8 - Td or Tdap) 12/23/2031 12/23/2021, 08/28/2011, 05/12/2005, Additional history exists HIB Vaccines Completed 08/04/2001, 09/30, 2000, Additional history exists Hepatitis B Vaccines Completed 08/04/2001, 2000, 2000 Pneumococcal Vaccine Completed 08/04/2001, 01/21/2001, 2000, Additional history exists IPV Vaccines Completed 05/12/2005, 09/30, 2000, Additional history exists MMR Vaccines Completed 05/12/2005, 04/14/2001 Varicella Vaccines Completed 08/28/2011, 04/14/2001 Hepatitis A Vaccines Completed 01/15/2016, 06/25/20 15 Meningococcal Vaccine Completed 07/09/2016, 011 HPV Vaccines Completed 05/28/2020, 12/31, 11/16/2019 Men B Vaccine Aged Out No longer elig ible based on patient's age to complete this topic Procedures * Due to [place] textPlus law, this organization might not be sharing sensitive test results. Procedure Name Priority Date/Time Associated Diagnosis Comments CHLAMYDIA GC AMP PROBE Routine 02/08/2023 4:20 PM EDT Well adult exam from Last 3 Months or Most Recently Relevant to Health Maintenance Results * Due to [place] textPlus law, this organization might not be sharing sensitive test results. * CHLAMYDIA GC AMP PROBE (02/08/2023 4:20 PM EDT) Chlamydia Trachomatis, Amplified NEGATIVE (NEG) [facility] Comment: No Chlamydia Trachomatis RNA detected in this patient's sample (REFERENCE RANGE/NORMAL VALUE: NOT DETECTED) Note: This test uses audio production manager- mediated amplification method to detect rRNA from C. Trachomatis N.GONORRHOEAE AMP PROBE NEGATIVE (NEG) [facility] Comment: No Neisseria Gonorrhoeae RNA detected in this patient's sample (REFERENCE RANGE/NORMAL VALUE: NOT DETECTED) NOTE: This test uses audio production manager-mediated amplification method to detect rRNA from N.Gonorrhoeae. A negative result does not preclude infection. In the case of a negative urine result, testing of an endocervical(female) or urethral (male) specimen is recommended if there is high clinical suspicion of infection. Due to very high sensitivity of Nucleic Acid Amplification Test, false positive results may occur. Therefore, specimen handling is extremely important. In patients in whom the disease is unlikely, additional sample for testing should be considered after an initial positive result. The performance characteristics of this test have not been evaluated in children. The Aptima Combo2 assay is not intended for the evaluation of suspected sexual abuse or for other medico-legal indications. The ordering provider should assess if the patient had consensual sex without risk of sexual abuse. Consult the [facility] if needed. Contact phone number . Therapeutic failure or success cannot be determined with the Aptima Combo2 assay since nucleic acid may persist following appropriate antimicrobial therapy. The Centers for Disease Control and Prevention (CDC) recommends confirmatory retesting using culture or a different nucleic acid amplification test when positive results occur, if indicated. CHLAM/GC AMP PROBE SPEC TYPE VAGINAL SPECIMEN [facility] Comment: Testing performed or reported by [facility], a Service of [facility], [address] [place] [address] [place] [address] Tulio Lau MD, Account Support Specialist [facility]# [id number] Swab (Vagina) 02/08/2023 4:2 0 PM EDT 02/09/2023 3:13 AM EDT us Demetria Strickland MD LAB MICROBIOLOGY - GENERAL ORDER ARISTEO Final Result [facility] from Last 3 Months or Most Recently Relevant to Health Maintenance Insurance [facility] [place] [id number] Care Teams Web Marketing Specialist Relationship Specialty Start Date End Date Kandace Barrera NP [facility] [place] [address] PCP - General Pediatrics 05/18/23
--- OUTSIDE RECORDS SUMMARY | 2025-07-31 12:39 | XMS_ITS | Encounter Summary ---
Author Organization [facility] Address [address] [place] [phone] Phone Care Team Providers Care Meat Department Manager Name Role Phone Kandace Barrera IMMUNOLOGY TEACHER Primary Care Provider Encounter Details Date Type Department Care Team (Late st Contact Info) Description 08/27/2011 Conversion Encounter [facility] [address] [place] [address] [place] [address] Social History Tobacco Use Types Packs/Day Years Used Date Smoking Tobacco: Never Assessed Comments Unknown Sex and Gender Information Value Date Recorded Sex Assigned at Not on file Legal Sex Female 6:34 PM EDT Gender Identity Female 01/07/2021 10:04 AM EST Sexual Orientation Not on file documented as of this encounter Plan of Treatment Not on file documented as of this encounter Visit Diagnoses Not on filedocumented in this encounter Care Teams Meat Department Manager Relationship Specialty Start Date End Date Kandace Barrera NP [address] [place] [address] [place] [address] PCP - General Pediatrics 05/18/23 documented as of this encounter
--- OUTSIDE RECORDS SUMMARY | 2025-07-31 12:39 | XMS_ITS | Encounter Summary ---
Author Organization [facility] Address [address] [place] [address] Phone Care Team Providers Care Fish Cutter Name Role Phone Mariyatrisha Kandace CAMMY Primary Care Provider [phone] Reason for Visit * Reason Comments Med Refill Encounter Details Date Type Department Care Team ([facility] Contact Info) Description 03/05/2022 Refill [facility] [address] [place] [address] Demetria Strickland MD [address] [place] [address] Anxiety with depression Social History Tobacco Use [...] depression documented in this encounter Care Teams Fish Cutter Relationship Specialty Start Date End Date Kandace Barrera NP [facility] [facility] [place] [address] PCP - General Pediatrics 05/18/23 documented as of this encounter
== END 2025-07-31 11:03 | disposition home or self-care (01) ==
LOC: HO.MRI 11:02
PROVIDERS: PCP Physician Assistant Medical; Visit Provider Physician Assistant Medical
DX: R16.0 Hepatomegaly, not elsewhere classified (principal)
CPT/HCPCS: 74183; A9585

== ENCOUNTER → 2025-07-31 11:02 | Outpatient (BNV) | payer OTHER, SELFPAY | PROVIDERS: PCP Physician Assistant Medical; Visit Provider Radiology Diagnostic Radiology | DX: R16.0 Hepatomegaly, not elsewhere classified (principal) | CPT/HCPCS: 74183 ==

== ENCOUNTER 2025-08-30 09:48 | Outpatient (AMB) | payer OTHER, SELFPAY ==
--- NOTE | 2025-08-30 09:54 | A.OFFPC_ITS ---
Vital Signs 08/30/25 10:00 Height 5 ft 2.32 in Weight 149 lb 2 oz BMI 27.0 BP 100/60 Blood Pressure Location Rt brachial Position Sitting Pulse 77 Pulse Source Pulse Oximeter Temp 97.8 F Temp Source Temporal Artery Scan Pulse Oximetry (%) 98 Oxygen Delivery Method Room Air Intake Visit Reasons: follow up MRI result Intake Note: Ewa presents in the office today to follow up to her MRI results. Allergies No Known Allergies Allergy (Verified 08/30/25 09:54) Medication List - Last Reconciled 08/30/25 by ASHLY Carranza desvenlafaxine succinate ER 50 mg PO DAILY hydroxyzine HCl 25 mg PO BEDTIME ketoconazole 2% 1 appl topical BID 4 weeks levonorgestrel-ethinyl estrad 0.1-20 mg-mcg (Vienva) 1 tab PO DAILY ofloxacin 0.3% (Ocuflox) Instill 1 to 2 drops in affected eye(s) every 2 to 4 hours for the first 2 days, then instill 1 to 2 drops 4 times daily for an additional 5 days Tobacco use date assessed: 08/30/25 Dental Screening Dental Screen Date: 08/30/25 Did you have a dental visit in the last 12 months?: Yes Did you have a dental problem in the last 6 months where you did not have access to dental care?: No Was dental information given to patient?: No HPI HPI Comments History of Present Illness Details This is a 24-year-old female with a past medical history of depression, anxiety, ADHD and liver lesions presenting for follow up. We previously reviewed the MRI of her liver which demonstrated 3 hepatic lesions without a clear definitive imaging diagnosis though flash hemangiomata were considered. A 3 month follow up was recommended for stability. There was mild hepatomegaly noted. She was referred to Gastroenterology, and they called her to schedule an appointment, but she has not done that yet. She says she is feeling well without vomiting, nausea, abdominal pain or unexplained weight loss. She is eating normally. ADHD, anxiety and depression-seeing a therapist and psychiatrist in [place]. She notes improvement on desvenlafaxine. She has a follow up next week with the psychiastrist. She takes Hydroxyzine as needed at night. Her right eye has been bothering her this morning. It is itchy and irritated and red. She wears lashes, but she uses the same product all the time. No fevers, chills, vision changes. She also reports intermittent hives and itching for a few months. Her skin is usually itchy every day, and sometimes she sees hives on her arms and legs. She showed me pictures of the raised wheals. There does not seem to be a pattern to this though she wonders if it could be related to allergies. She has no known food or medication allergies. She does have seasonal allergy symptoms. Denies history of anaphylaxis, throat swelling, angioedema. ROS: Constitutional: No unexplained weight loss, fever, chills or night sweats Eyes: No vision changes, loss of vision, double vision, eye pain or discharge. Respiratory: No shortness of breath, cough or sputum production. Cardiovascular: No chest pain, chest pressure or chest discomfort. Gastrointestinal: No dysphagia, vomiting, nausea, abdominal, diarrhea, constipation, blood in stools Psychiatric: See HPI Physical exam: Constitutional: Alert, in no distress. Eyes: Pupils are equal, round and reactive to light. Extraocular muscles intact. Nontender periorbital tenderness. Moderate right conjunctival erythema most notable at the outer corner of the eye. No discharge. No periorbital edema. Neck: Supple, Full range of motion. No lymphadenopathy. No palpable thyroid masses. Respiratory: Clear to auscultation. Cardiovascular: S1 S2 regular. No murmurs. Gastrointestinal: Abdomen soft, non-tender, non-distended. Normal bowel sounds. No palpable masses. No rebound or guarding. Psychiatric: Normal affect Skin: No jaundice or rashes present today. [facility] Medical History (Updated 08/30/25 @ 13:30 by ASHLY Carrnaza) Urticaria Right conjunctivitis Hepatomegaly Urticaria Family history of breast cancer Liver masses Abdominal pain Weight loss Decreased leukocytes Gastritis Skin lesion Family history of ovarian cancer Anxiety and depression ADHD Routine physical examination Screening for cardiovascular condition Family History Father Rectal cancer Paternal Grandmother Ovarian cancer Cervical cancer Paternal Aunt Breast cancer Paternal Aunt Breast cancer Other FH: mental illness Social History (Updated 08/30/25 @ 09:55 by Savi Patel CMA) Housing: House Alcohol intake: current Patient Tobacco Use Status: Never used Tobacco e-Cigarette/Vaping Use: Never Used Second Hand Smoke Exposure: No Substance Use Type: Marijuana service: No Current occupational status: employed 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, 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 Current occupational exposures/hazards: No Cognitive needs: No Hearing needs: No Vision needs: Yes (glasses) Questionnaire Thrive Questionnaire Date Thrive assessed: 05/10/25 I am a: Patient What is your living situation today?: I have a steady place to live Within the past 12 months, did the food you bought not last and you didn't have the money to get more?: Never true Within the past 12 months, did you worry whether your food would run out before you got money to buy more?: Never true Do you have trouble paying for medicines?: No Do you have trouble getting transportation to medical appointments?: No Do you have trouble paying your heating and electricity bill?: No Do you have trouble taking care of your child, family member or friend?: No Do you have trouble with day-to-day activities such as bathing, preparing meals, shopping, managing finances, etc.?: No Are you currently unemployed and looking for a job?: No Are you interested in more education?: I choose not to answer this question Please select the resources that you would like help with: None Currently or been in a relationship where the following occur: I choose not to answer THRIVE Score: 0 MANNIE-7 AMB Questionnaire MANNIE-7 Date MANNIE - 7 assessed: 05/10/25 Source: Developed by Drs. Stewart Sauceda, Tere Oden, Boubacar Nielson and colleagues, with an educational yordan from [employer]. Physical exam (Primary Care) Vital Signs: Last Vital Signs Temp 97.8 F 08/30/25 10:00 Pulse 77 08/30/25 10:00 BP 100/60 08/30/25 10:00 Pulse Ox 98 08/30/25 10:00 Oxygen Delivery Method Room Air 08/30/25 10:00 BMI result Body Mass Index 27.0 Tobacco/Smoking Status: Tobacco use Status Tobacco use date assessed 08/30/25 08/30/25 09:58 Patient Tobacco Use Status Never used Tobacco 08/30/25 09:55 e-Cigarette/Vaping Use Never Used 08/30/25 09:55 Thrive Assessment: Date of Thrive Assessment Date Thrive assessed 05/10/25 08/30/25 09:54 Currently or been in a relationship where the following occur: I choose not to answer Coding Level of Care Code Madisyn Pt Level 4 (42134) Complex EM visit Add On G2211 Diagnoses Right conjunctivitis H10.9 Liver masses R16.0 Anxiety and depression F41.9; F32.A Urticaria L50.9 Assessment & Plan Assessment & Plan (1) Right conjunctivitis: Code(s): H10.9 - Unspecified conjunctivitis Category: Medical Plan: Differential reviewed with the patient. Advised if she develops worsening symptoms including swelling, vision changes, fever or headache she should go to the emergency room. Sent antibiotic drops in reviewed juice with the patient. She will follow up if symptoms do not improve after 48 hours. (2) Liver masses: Code(s): R16.0 - Hepatomegaly, not elsewhere classified Category: Medical Plan: MRI reviewed again with the patient. No definitive diagnosis though flash hemangiomata considered. Advised patient to call Gastroenterology today to schedule the appointment so they can review this. She has an order in for a repeat MRI for October. (3) Anxiety and depression: Code(s): F41.9 - Anxiety disorder, unspecified; F32.A - Depression, unspecified Category: Medical Plan: Stable. Continue management with therapist and psychiatrist. (4) Urticaria: Code(s): L50.9 - Urticaria, unspecified Category: Medical Plan: She will try Zyrtec 10 mg daily. Once itching and hives are completely gone she can try using this as needed for allergy symptoms. If symptoms return she will take it every day. Referred to Allergy and immunology. Plan Follow up in October. Orders: Referrals Allergy & Immunology Referral L50.9 - Urticaria, unspecified Medications: New ofloxacin 0.3% (Ocuflox) Instill 1 to 2 drops in affected eye(s) every 2 to 4 hours for the first 2 days, then instill 1 to 2 drops 4 times daily for an additional 5 days 5 mL 0RF
[2025-08-30 10:00] VITALS: BP 100/60; PULSE 77; TEMP 36.6; O2SAT 98; BMI 27.0
--- OUTSIDE RECORDS SUMMARY | 2025-08-30 10:58 | XMS_ITS | Encounter Summary ---
Author Organization [facility] Address [address] [place] [phone] Phone Care Team Providers Care Flat Breakdown Processor Name Role Phone Mariyatrisha Kandace CAMMY Primary Care Provider [phone] Reason for Visit * Reason Comments Med Refill Encounter Details Date Type Department Care Team ([facility] Contact Info) Description 03/05/2022 Refill [facility] [address] [place] [address] Demetria Strickland MD [address] [place] [address] Anxiety with depression Social History Tobacco Use [...] depression documented in this encounter Care Teams Flat Breakdown Processor Relationship Specialty Start Date End Date Kandace Barrera NP [facility] [place] [address] PCP - General Pediatrics 05/18/23 documented as of this encounter
--- OUTSIDE RECORDS SUMMARY | 2025-08-30 10:58 | XMS_ITS | Encounter Summary ---
Author Organization [facility] Address [address] [place] [phone] Phone Care Team Providers Care Scrap Crane Operator Name Role Phone Kandace Barrera LEAD REFINERY SUPERVISOR Primary Care Provider [phone] Encounter Details Date Type Department Care Team (Late st Contact Info) Description 08/27/2011 Conversion Encounter [facility] [address] [place] [address] [place] [address] Social History Tobacco Use Types Packs/Day Years [...] on filedocumented in this encounter Care Teams Scrap Crane Operator Relationship Specialty Start Date End Date Kandace Barrera NP [address] [place] [address] [place] [address] PCP - General Pediatrics 05/18/23 documented as of this encounter
--- OUTSIDE RECORDS SUMMARY | 2025-08-30 10:58 | XMS_ITS | Clinical Summary ---
Author Organization [facility] Address [address] [place] [id number] Phone Care Team Providers Care Bookkeeping Clerk Name Role Phone Kandace Barrera SIX COLOR PRESS OPERATOR Primary Care Provider [phone] Allergies No known active allergies Medications hydrOXYzine [...] complete this topic Procedures * Due to [place] Quickoffice law, this organization might not be sharing sensitive test results. Procedure Name Priority Date/Time Associated Diagnosis Comments CHLAMYDIA GC AMP PROBE Routine 02/08/2023 4:20 PM EDT Well adult exam from Last 3 Months or Most Recently Relevant to Health Maintenance Results * Due to [place] Quickoffice law, this organization might not be sharing sensitive test results. * CHLAMYDIA GC AMP PROBE (02/08/2023 4:20 PM EDT) Chlamydia Trachomatis, Amplified NEGATIVE (NEG) [facility] Comment: No Chlamydia Trachomatis RNA detected in this patient's sample (REFERENCE RANGE/NORMAL VALUE: NOT DETECTED) Note: This test uses fireperson- mediated amplification method to detect rRNA from C. Trachomatis N.GONORRHOEAE AMP PROBE NEGATIVE (NEG) [facility] Comment: No Neisseria Gonorrhoeae RNA detected in this patient's sample (REFERENCE RANGE/NORMAL VALUE: NOT DETECTED) NOTE: This test uses fireperson-mediated amplification method to detect rRNA from N.Gonorrhoeae. [...] without risk of sexual abuse. Consult the [facility] if needed. Contact phone number . Therapeutic failure or success cannot be determined with the Aptima Combo2 assay since nucleic acid may persist following appropriate antimicrobial therapy. The Centers for Disease Control and Prevention (CDC) recommends confirmatory retesting using culture or a different nucleic acid amplification test when positive results occur, if indicated. CHLAM/GC AMP PROBE SPEC TYPE VAGINAL SPECIMEN [facility] Comment: Testing performed or reported by [facility], a Service of [facility], [address] [place] [address] [place] [address] Tulio Lau MD, Machine Pecan Gatherer [facility]# [id number] Swab (Vagina) 02/08/2023 4:2 0 PM EDT 02/09/2023 3:13 AM EDT us Demetria Strickland MD LAB MICROBIOLOGY - GENERAL ORDER ARISTEO Final Result [facility] from Last 3 Months or Most Recently Relevant to Health Maintenance Insurance [facility] [place]ZAR[place] HERNANDEZ [id number] Care Teams Bookkeeping Clerk Relationship Specialty Start Date End Date Kandace Barrera NP [facility] [place] [address] PCP - General Pediatrics 05/18/23
--- OUTSIDE RECORDS SUMMARY | 2025-08-30 10:58 | XMS_ITS | Encounter Summary ---
Author Organization [facility] Address [address] [place] [phone] Phone Care Team Providers Care Heating Equipment Repairer Name Role Phone Mariyatrisha Kandace CAMMY Primary Care Provider [phone] Reason for Visit * Reason Comments Med Refill Encounter Details Date Type Department Care Team ([facility] Contact Info) Description 01/04/2021 Refill [facility] [address] [place] [address] Demetria Strickland MD [address] [place] [address] Anxiety Social History Tobacco Use Types Packs/Day [...] unspecified documented in this encounter Care Teams Heating Equipment Repairer Relationship Specialty Start Date End Date Kandace Barrera NP [facility] [place] [address] PCP - General Pediatrics 05/18/23 documented as of this encounter
== END 2025-08-30 10:35 | disposition home or self-care (01) ==
LOC: HO.HMCFM 09:49
PROVIDERS: PCP Physician Assistant Medical; Visit Provider Physician Assistant Medical
DX: H10.9 Unspecified conjunctivitis (principal); R16.0 Hepatomegaly, not elsewhere classified; F41.9 Anxiety disorder, unspecified; F32.A Depression, unspecified; L50.9 Urticaria, unspecified

== ENCOUNTER 2025-10-22 12:28 | Outpatient (REF) | payer OTHER, SELFPAY ==
[2025-10-22 14:25] LABS: MANUAL DIFF FLAG NO
[2025-10-22 14:35] LABS: Hematocrit 40.2 % (37.0-47.0); Hemoglobin 13.0 g/dl (12.0-16.0); Imm Gran Abs Auto 0.04 X10*3/uL (0.00-0.03); Imm Gran Pct Auto 0.5 % (0.0-0.4); Lymphocytes Absolute Auto 1.7 X10*3/uL (1.2-4.9); Mean Corpuscular HGB Conc 32.3 g/dl (31.0-35.0); Mean Corpuscular Hemoglobin 28.5 pg (27.0-33.0); Mean Corpuscular Volume 88.2 fL (80.0-98.0); NRBC Abs Auto 0.000 X10*3/uL (0.0-0.012); NRBC Pct Auto 0.0 /100WBC (0.0-0.2); Platelet Count 242 X10*3/uL (160-400); Red Blood Count 4.56 X10*6/uL (4.20-5.50); White Blood Count 8.2 X10*3/uL (4.8-10.8)
[2025-10-23 06:17] LABS: Lyme Abs Screen <0.90 index
[2025-10-24 07:47] LABS: Antibody to SS-A Antigen <1.0 NEG AI (<1.0 NEG); Antibody to SS-B Antigen <1.0 NEG AI (<1.0 NEG)
[2025-10-24 10:03] LABS: Anti Nuclear Antibody Screen NEGATIVE (NEGATIVE)
== END 2025-10-22 12:29 | disposition home or self-care (01) ==
LOC: HO.WFDLDS 12:28
PROVIDERS: Visit Provider Physician Assistant Medical
DX: H15.009 Unspecified scleritis, unspecified eye (principal); M25.50 Pain in unspecified joint; Z01.84 Encounter for antibody response examination
CPT/HCPCS: 36415; 85025; 85652; 86038; 86140; 86235; 86431; 86617; 86618

== ENCOUNTER 2025-11-12 10:11 | Outpatient (REF) | payer OTHER, SELFPAY ==
[2025-11-12 18:03] LABS: MANUAL DIFF FLAG NO
[2025-11-12 18:18] LABS: Hematocrit 39.1 % (37.0-47.0); Hemoglobin 12.5 g/dl (12.0-16.0); Imm Gran Abs Auto 0.02 X10*3/uL (0.00-0.03); Imm Gran Pct Auto 0.3 % (0.0-0.4); Lymphocytes Absolute Auto 1.6 X10*3/uL (1.2-4.9); Mean Corpuscular HGB Conc 32.0 g/dl (31.0-35.0); Mean Corpuscular Hemoglobin 28.0 pg (27.0-33.0); Mean Corpuscular Volume 87.5 fL (80.0-98.0); NRBC Abs Auto 0.000 X10*3/uL (0.0-0.012); NRBC Pct Auto 0.0 /100WBC (0.0-0.2); Platelet Count 216 X10*3/uL (160-400); Red Blood Count 4.47 X10*6/uL (4.20-5.50); White Blood Count 6.6 X10*3/uL (4.8-10.8)
[2025-11-12 18:51] LABS: Alanine Aminotransferase 19 U/L (0-31); Albumin Level 4.3 g/dL (3.5-5.0); Alkaline Phosphatase 82 U/L (39-117); Anion Gap 10 (12-20); Aspartate Amino Transferase 22 U/L (5-31); Blood Urea Nitrogen 15 mg/dL (9-16); Calcium 9.2 mg/dL (8.4-10.2); Carbon Dioxide 23 mmol/L (22-29); Chloride 110 mmol/L (96-108); Estimated Glomerular Filt Rate > 60; Potassium 4.6 mmol/L (3.3-5.1); Sodium 138 mmol/L (135-145); Total Protein 6.8 g/dL (6.5-8.0)
== END 2025-11-12 10:12 | disposition home or self-care (01) ==
LOC: HO.WFDLDS 10:11
PROVIDERS: PCP Physician Assistant Medical; Visit Provider Physician Assistant Medical
DX: H15.001 Unspecified scleritis, right eye (principal); H57.11 Ocular pain, right eye; H57.89 Other specified disorders of eye and adnexa; L98.9 Disorder of the skin and subcutaneous tissue, unspecified; L50.9 Urticaria, unspecified; R60.0 Localized edema; M13.80 Other specified arthritis, unspecified site
CPT/HCPCS: 36415; 80053; 83520; 84443; 85025; 85652

== ENCOUNTER 2025-11-12 10:11 | Outpatient (AMB) | payer OTHER, SELFPAY ==
--- NOTE | 2025-11-12 10:23 | MHC.PC.OV ---
Vital Signs 11/12/25 10:26 Height 5 ft 2.32 in Weight 160 lb 8 oz BMI 29.1 BP 100/58 L Blood Pressure Location Rt brachial Position Sitting Respiration 15 Pulse 96 Pulse Source Pulse Oximeter Temp 97.5 F Temp Source Temporal Artery Scan Pulse Oximetry (%) 97 Oxygen Delivery Method Room Air Intake Visit Reasons: follow up MRI Intake Note: Ewa presents in the office today to follow up to her MRI. Staff Consultant Required: No Is last menstrual period known: Yes Last menstrual period: 11/12/25 Post menopausal: No Patient : No Allergies No Known Allergies Allergy (Verified 11/12/25 10:25) Medication List - Last Reconciled 11/12/25 by ASHLY Carranza desvenlafaxine succinate ER 50 mg PO DAILY hydroxyzine HCl 25 mg PO BEDTIME ketoconazole 2% 1 appl topical BID 4 weeks levonorgestrel-ethinyl estrad 0.1-20 mg-mcg (Vienva) 1 tab PO DAILY Tobacco use date assessed: 11/12/25 Dental Screening Dental Screen Date: 11/12/25 Did you have a dental visit in the last 12 months?: Yes Did you have a dental problem in the last 6 months where you did not have access to dental care?: No Was dental information given to patient?: Patient has dentist HPI HPI Comments History of Present Illness Details 25 year old female presents for follow up. She has been dealing with right eye symptoms for about 8 weeks. Seeing opthamology at [facility]. Next follow up in 6 months. 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 Patient says she can't taper steroid eye drops or Ibuprofen without worsening symptoms, but even on these medications she still has constant symptoms. Even on medications she she has right eye redness, swelling around it, tearing, pain. Denies vision changes. She was initially treated with Tobradex when it was thought to be conjunctivitis. No known allergies. Seen by collections rep and tested because she has also been having daily hives for several months. Taking Xyzal daily. Hives less itchy and severe, but they still happen. She reported some migratory joint pains, but Lyme, DOMENICA, RF, sjogrens ab, CRP, cbc normal. Upon further questions, previous scaly patch on the back which went away with antifungal cream came back, and she thinks it is bigger. It is a little itchy. ROS: Constitutional: No unexplained weight loss, fever, chills, fatigue or night sweats. Eyes: see HPI Gastrointestinal: No anorexia, nausea, vomiting or diarrhea. No abdominal pain Neurologic: No headache, dizziness, syncope Hematologic/Lymphatics: No bleeding or bruising. Skin: see HPI Endocrine: No cold or heat intolerance. No polyuria or polydipsia. Psychiatric: +stress and anxiety Physical exam: Constitutional: Alert, in no distress. Head: Normocephalic. Eyes: Pupils are equal, round and reactive to light. Extraocular muscles intact. Right eye lower periorbital swelling and erythema, tender to palpation, right scleral and conjunctival erythema, right eye tearing. Neck: Supple, Full range of motion. No lymphadenopathy. No palpable thyroid masses. Respiratory: Clear to auscultation. Cardiovascular: S1 S2 regular. No murmurs. Extremities: Warm and well perfused. No clubbing, cyanosis or edema. Skin: palm sized annular scaly lesion, central clearing, raidsed borders on lower back [facility] Medical History (Updated 11/12/25 @ 20:58 by ASHLY Carranza) Migratory polyarthritis Pain, eye, right Redness of right eye Periorbital edema of right eye Scleritis Joint pain Urticaria Right conjunctivitis Hepatomegaly Urticaria Family history of breast cancer Liver masses Abdominal pain Weight loss Decreased leukocytes Gastritis Skin lesion Family history of ovarian cancer Anxiety and depression ADHD Routine physical examination Screening for cardiovascular condition Family History Father Rectal cancer Paternal Grandmother Ovarian cancer Cervical cancer Paternal Aunt Breast cancer Paternal Aunt Breast cancer Other FH: mental illness Social History (Updated 11/12/25 @ 10:26 by Savi Patel CMA) Housing: House Alcohol intake: current Patient Tobacco Use Status: Never used Tobacco e-Cigarette/Vaping Use: Never Used Second Hand Smoke Exposure: No Substance Use Type: Marijuana service: No Current occupational status: employed 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, 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 Current occupational exposures/hazards: No Cognitive needs: No Hearing needs: No Vision needs: Yes (glasses) Female Reproductive History Menstrual Date of last menstrual period: 11/12/25 Questionnaire Thrive Questionnaire Date Thrive assessed: 05/10/25 I am a: Patient What is your living situation today?: I have a steady place to live Within the past 12 months, did the food you bought not last and you didn't have the money to get more?: Never true Within the past 12 months, did you worry whether your food would run out before you got money to buy more?: Never true Do you have trouble paying for medicines?: No Do you have trouble getting transportation to medical appointments?: No Do you have trouble paying your heating and electricity bill?: No Do you have trouble taking care of your child, family member or friend?: No Do you have trouble with day-to-day activities such as bathing, preparing meals, shopping, managing finances, etc.?: No Are you currently unemployed and looking for a job?: No Are you interested in more education?: I choose not to answer this question Please select the resources that you would like help with: None Currently or been in a relationship where the following occur: I choose not to answer THRIVE Score: 0 MANNIE-7 AMB Questionnaire MANNIE-7 Date MANNIE - 7 assessed: 05/10/25 Source: Developed by Drs. Stewart Sauceda, Tere Odne, Boubacar Nielson and colleagues, with an educational yordan from [employer]. Physical exam (Primary Care) Vital Signs: Last Vital Signs Temp 97.5 F 11/12/25 10:26 Pulse 96 11/12/25 10:26 Resp 15 11/12/25 10:26 BP 100/58 L 11/12/25 10:26 Pulse Ox 97 11/12/25 10:26 Oxygen Delivery Method Room Air 11/12/25 10:26 BMI result Body Mass Index 29.1 Tobacco/Smoking Status: Tobacco use Status Tobacco use date assessed 11/12/25 11/12/25 10:28 Patient Tobacco Use Status Never used Tobacco 11/12/25 10:28 e-Cigarette/Vaping Use Never Used 11/12/25 10:28 Thrive Assessment: Date of Thrive Assessment Date Thrive assessed 05/10/25 11/12/25 10:28 Currently or been in a relationship where the following occur: I choose not to answer Coding Level of Care Code Est Pt Level 4 (60254) Add On Problem Visit Only Diagnoses Periorbital edema of right eye R60.0 Redness of right eye H57.89 Pain, eye, right H57.11 Skin lesion L98.9 Urticaria L50.9 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 Laterality: right Assessment & Plan Assessment & Plan (1) Periorbital edema of right eye: Code(s): R60.0 - Localized edema Category: Medical (2) Redness of right eye: Code(s): H57.89 - Other specified disorders of eye and adnexa Category: Medical (3) Pain, eye, right: Code(s): H57.11 - Ocular pain, right eye Category: Medical (4) Skin lesion: Code(s): L98.9 - Disorder of the skin and subcutaneous tissue, unspecified Category: Medical (5) Urticaria: Code(s): L50.9 - Urticaria, unspecified Category: Medical (6) Migratory polyarthritis: Code(s): M13.80 - Other specified arthritis, unspecified site Category: Medical (7) Scleritis: Code(s): H15.009 - Unspecified scleritis, unspecified eye Category: Medical Qualifiers: Laterality: right Qualified Code(s): H15.001 - Unspecified scleritis, right eye Plan 25 year old female with 8 weeks of eye redness, swelling, tearing and pain. Working diagnosis of scleritis, but she has persistent symptoms despite more than 4 weeks of treatment including oral NSAID and topical steroids. She was also treated with topical abx drops with no response. Proceed with MR orbits wo/w contrast. Medically necessary given treatment failure to confirm dx and rule out ocular malignancy. Refer to [facility]. Labs negative for autoimmune screenings. Patient also has chronic hives for which she saw the collections rep. No allergies on testing. Refer to rheumatology given scleritis, hives, migratory joint pains. Check Tryptase today. ?mast cell disorder. At the end of the visit she mentioned the recurrent skin lesion that previously responded to topical antifungals and looks like a large tinea corporis lesion. Advised patient any type of infection could trigger the above processes. Treat with topical Ketoconazole 2-4 weeks. She will notify me if there is no response and follow up in 1 month for reevaluaiton. Unfortunately if this has triggered hives and scleritis it may still be weeks or months after resolution before these other problems resolve. Orders: Orders Erythrocyte Sedimentation Rate Today H15.009 - Unspecified scleritis, unspecified eye, L50.9 - Urticaria, unspecified TSH reflex Free T4 Today H15.009 - Unspecified scleritis, unspecified eye, L50.9 - Urticaria, unspecified Comprehensive Met. Panel Today H15.009 - Unspecified scleritis, unspecified eye, L50.9 - Urticaria, unspecified Complete Blood Count Auto Diff Today H15.009 - Unspecified scleritis, unspecified eye, L50.9 - Urticaria, unspecified Tryptase Today H15.009 - Unspecified scleritis, unspecified eye, L50.9 - Urticaria, unspecified MR orbits face neck wo/w con Today H15.009 - Unspecified scleritis, unspecified eye, H57.11 - Ocular pain, right eye, H57.89 - Other specified disorders of eye and adnexa, R60.0 - Localized edema Referrals Ophthalmology Referral H15.009 - Unspecified scleritis, unspecified eye, H57.11 - Ocular pain, right eye, H57.89 - Other specified disorders of eye and adnexa, R60.0 - Localized edema Rheumatology Referral H15.009 - Unspecified scleritis, unspecified eye, L50.9 - Urticaria, unspecified, M13.80 - Other specified arthritis, unspecified site Medications: Refilled ketoconazole 2% 1 appl topical BID 30 grams 2RF 4 weeks
[2025-11-12 10:26] VITALS: BP 100/58; PULSE 96; RESP 15; TEMP 36.4; O2SAT 97; BMI 29.1
== END 2025-11-12 11:04 | disposition home or self-care (01) ==
LOC: HO.HMCFM 10:12
PROVIDERS: PCP Physician Assistant Medical; Visit Provider Physician Assistant Medical
DX: R60.0 Localized edema (principal); H57.89 Other specified disorders of eye and adnexa; H57.11 Ocular pain, right eye; L98.9 Disorder of the skin and subcutaneous tissue, unspecified; L50.9 Urticaria, unspecified; M13.80 Other specified arthritis, unspecified site; H15.001 Unspecified scleritis, right eye